=== PATIENT | male | born 1960 | race Caucasian/White ===

== ENCOUNTER → 2020-12-24 17:02 | Outpatient (CLI) | payer OTHER, SELFPAY ==
--- NOTE | ~2020-12-24 | MR_ITS ---
EXAMINATION: MR shoulder RT wo con DATE: 12/24/2020 18:04 INDICATION: Right shoulder pain. TECHNIQUE: Magnetic resonance imaging (MRI) of the right shoulder was performed without intravenous c ontrast. Sequences included axial PD-weighted FS FSE, coronal oblique PD-weighted FS FSE, coronal obl ique T2-weighted FS FSE, sagittal PD-weighted FS FSE, and sagittal T1-weighted SE. COMPARISON: None. FINDINGS: Coracoacromial arch: The acromion undersurface is curved in morphology (type II). The coracoacromial ligament is normal. M ild acromioclavicular osteoarthritis. Rotator cuff: Moderate supraspinatus tendinopathy and mild tendinopathy of the anterior infraspinatus without discr ete tear. Teres minor and subscapularis tendons are normal. Normal rotator cuff muscle bulk and signa l. Biceps tendon, glenoid labrum and glenohumeral cartilage: Long head of the biceps tendon is normal. Small marginal osteophytes along the anteroinferior glenoid extending to the base of the labrum. No labral tear. Glenohumeral cartilage is normal. Fluid: Physiologic amount of fluid in the glenohumeral joint and biceps tendon sheath. No loose osteochondra l bodies. Mild increased fluid signal in the subacromial/subdeltoid bursa consistent with minimal bur sitis. Bones: Normal marrow signal with no edema, fracture or abnormal marrow replacing process. Minimal cystic brianna nge at the superior facet of the greater tuberosity. IMPRESSION: 1. Moderate supraspinatus and mild infraspinatus tendinopathy without discrete tear. 2. Mild acromioclavicular osteoarthritis and minimal underlying subacromial/subdeltoid bursitis. Reviewed, dictated and finalized at location A. IMPRESSION: 1. Moderate supraspinatus and mild infraspinatus tendinopathy without discrete tear. 2. Mild acromioclavicular osteoarthritis and minimal underlying subacromial/sub deltoid bursitis.
== END ==
PROVIDERS: Visit Provider Physician Assistant Medical
DX: M25.511 Pain in right shoulder (principal); G89.29 Other chronic pain; M75.81 Other shoulder lesions, right shoulder; M19.011 Primary osteoarthritis, right shoulder; M75.51 Bursitis of right shoulder
CPT/HCPCS: 73221

== ENCOUNTER → 2021-09-28 10:45 | Outpatient (CLI) | payer OTHER, SELFPAY ==
--- NOTE | ~2021-09-28 | US_ITS ---
US breast LT limited INDICATION: Palpable left breast lump TECHNIQUE: Dedicated left Limited breast ultrasound COMPARISON: No prior studies for comparison. FINDINGS: The left breast is composed of normal heterogeneous echotexture without focal solid or cyst ic mass. IMPRESSION: 1: Normal left breast ultrasound. BI-RADS CATEGORY 1 - NEGATIVE Reviewed, dictated and finalized at location A. R OPERATOR
== END ==
PROVIDERS: Visit Provider Nurse Practitioner Family
DX: R22.2 Localized swelling, mass and lump, trunk (principal)
CPT/HCPCS: 76642

== ENCOUNTER → 2021-10-19 15:53 | Outpatient (CLI) | payer OTHER, SELFPAY ==
--- NOTE | ~2021-10-19 | MR_ITS ---
EXAMINATION: MR thoracic spine wo/w con DATE: 10/19/2021 17:05 INDICATION: Posterior left shoulder and upper and mid back pain and swelling. TECHNIQUE: Magnetic resonance imaging (MRI) of the thoracic spine was performed without and with 20 m L Multihance intravenous contrast. Sagittal localizer T1-weighted FSE of the cervicothoracic spine wa s obtained. Sequences included sagittal T2-weighted FSE, sagittal T2-weighted FS FSE, sagittal T1-shakeel ghted FSE and axial T1-weighted SE. Postcontrast sequences included axial T2-weighted FSE, sagittal T 1-weighted FS FSE, and axial T1-weighted FS SE. COMPARISON: None FINDINGS: Alignment is normal.Vertebral body heights are normal with a few small Schmorl's nodes at several end plates in the lower thoracic spine. Normal marrow signal.Multilevel mild disc height loss at T8-T9 th rough [id number] at L1-L2. Mild disc bulge at T9-T10 with only minimal central canal stenosis. Remain florence of the thoracic central canal is patent throughout. Multilevel mild thoracic facet osteoarthritis . No neural foraminal stenosis. There is normal spinal cord signal. The conus terminates at L1. The m arker indicating the region of concern is positioned over the posterior left second rib. Underlying c hest wall and paravertebral musculature is unremarkable. No abnormal enhancing masses or fluid collec tions identified. IMPRESSION: 1. Mild thoracic spondylosis. Reviewed, dictated and finalized at location A. MENT PHOTOGRAPHER
[2021-10-19 16:20] LABS: Estimated Glomerular Filt Rate > 60
== END ==
PROVIDERS: PCP Family Medicine; Visit Provider Nurse Practitioner Family
DX: R22.2 Localized swelling, mass and lump, trunk (principal); M47.894 Other spondylosis, thoracic region
CPT/HCPCS: 72157; A9577

== ENCOUNTER 2023-07-07 09:36 | Day surgery (SDC) | payer OTHER, SELFPAY ==
[2023-06-16 07:26] VITALS: BMI 33.7
--- NOTE | 2023-07-06 07:20 | WPDANESEPPF ---
Anes - Initial Pre Proc Eval Procedure: Operation Date: 07/07/23 11:00 Proposed Procedures p Screening Colonoscopy - Vazquez Mack MD Date/Time: 07/06/23 07:20 Surgeon: Vazquez Mack MD Pre Op Diagnosis: Z12.11 Screening neoplasm of colon Patient Data Age: 62 Gender: M Height: 1.8 m Weight: 111.6 kg Allergies Allergy/AdvReac Type Severity Reaction Status Date / Time No Known Allergies Allergy Verified 07/07/23 09:49 Home Medications Medication Instructions Recorded Confirmed Type azelastine 137 mcg (0.1 %) nasal 137 mcg (0.137 mL) intranasal Q12H 06/15/21 07/07/23 Rx spray aerosol #30 mL valacyclovir 1 gram tablet 2,000 mg PO Q12H #4 tabs 02/10/22 07/07/23 Rx (Valtrex) meloxicam 15 mg tablet 15 mg PO DAILY #30 tabs 04/13/22 07/07/23 Rx tizanidine 4 mg tablet 4 mg PO QHS PRN muscle spasticity 04/13/22 07/07/23 Rx #30 tabs cholecalciferol (vitamin D3) 125 125 mcg PO DAILY 06/02/23 07/07/23 History mcg (5,000 unit) capsule tapinarof 1 % topical cream (Vtama) 1 applic topical DAILY #60 grams 06/02/23 07/07/23 Rx tramadol 50 mg tablet 50 mg PO Q6H PRN pain #30 tabs 06/02/23 07/07/23 Rx Patient hx anesthesia problems: none Family hx anesthesia problems: none Results Review: All pre-operative results and documents have been reviewed as part of the pre-operative evaluation. [facility] Past Medical History Medical History (Updated 07/06/23 @ 16:09 by Rupert Cole NP) Abnormal MRI, lumbar spine BMI 34.0-34.9,adult Body mass index [BMI] 33.0-33.9, adult Constipation Elevated glucose Hyperlipidemia Mass on back Muscle cramping Psoriasis Rotator cuff tendonitis Screening for prostate cancer Shoulder pain, right Swelling, mass, or lump in chest Surgical History Surgical History H/O shoulder surgery Family History Family History Mother Family history of malignant neoplasm Family history of atrial fibrillation Grandparent Family history of malignant neoplasm Father Sibling No problems noted. Other Diabetes mellitus Social History Social History Smoking status: Never smoker Second hand tobacco smoke exposure: Yes Alcohol intake: current Drinks per week: 1 Substance use: never Substance use type: does not use Lack of Transportation: No Lack of Food: Never True Current Housing: I Have Housing Concerned About Future Housing: No Difficulty Paying Gas/Electric Bills: No Difficulty Paying for Meds: No Currently Unemployed: No Education: Trade/Vocational Certificate Difficulty w/ Childcare or Family Care: No Living arrangements: with family Additional living arrangements comments: Occupation/Education: occupation 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 Gender identity (if verbalized by the patient): Male Sexual Orientation (if Verbalized by the Patient): Straight or Heterosexual Spiritual care concerns: No Agree to blood products: Yes Anes - Eval Final PreProcedure Day of Procedure 07/06/23 07:20 Patient weight: obese Heart: regular rate and rhythm Lungs: clear to auscultation Airway: Mallampati scale class II Neurological: alert and oriented Last oral intake: >/= 8 hours ASA classification: II Emergent: no Anesthetic plan: proceed Anesthesia type and monitoring: general GIVS and standard monitoring Results Review: All pre-operative results and documents have been reviewed as part of the pre-operative evaluation. Informed Consent: The patient's anesthetic plan and its attendant risks and benefits were discussed with the patient/family/POA. Questions were solicited and answers provided to the satisfaction of the patient/family/POA.
--- NOTE | 2023-07-06 14:11 | PM.HPGS ---
History of Present Illness History of Present Illness Consent: Risks, benefits, and alternatives have been discussed and questions answered. Patient agrees to proceed with procedure. Chief complaint: Z12.11 Screening neoplasm of colon Narrative: Teo Metz is a 62 year old male referred for colon cancer screening. He had tubular adenoma removed about 14 years ago. Review of Systems Review of Systems: All systems reviewed & are unremarkable except as noted in HPI and below PMFSH Past Medical History Medical History Abnormal MRI, lumbar spine BMI 34.0-34.9,adult Body mass index [BMI] 33.0-33.9, adult Constipation Elevated glucose Hyperlipidemia Mass on back Muscle cramping Psoriasis Rotator cuff tendonitis Screening for prostate cancer Shoulder pain, right Swelling, mass, or lump in chest Surgical History Surgical History H/O shoulder surgery Family History Family History Mother Family history of malignant neoplasm Family history of atrial fibrillation Grandparent Family history of malignant neoplasm Father Sibling No problems noted. Other Diabetes mellitus Social History Social History Smoking status: Never smoker Second hand tobacco smoke exposure: Yes Alcohol intake: current Drinks per week: 1 Substance use: never Substance use type: does not use Lack of Transportation: No Lack of Food: Never True Current Housing: I Have Housing Concerned About Future Housing: No Difficulty Paying Gas/Electric Bills: No Difficulty Paying for Meds: No Currently Unemployed: No Education: Trade/Vocational Certificate Difficulty w/ Childcare or Family Care: No Living arrangements: with family Additional living arrangements comments: Occupation/Education: occupation 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 Gender identity (if verbalized by the patient): Male Sexual Orientation (if Verbalized by the Patient): Straight or Heterosexual Spiritual care concerns: No Agree to blood products: Yes Meds Home Medications and Allergies Home Medications Medication Instructions Recorded Confirmed Type azelastine 137 mcg (0.1 %) nasal 137 mcg (0.137 mL) intranasal Q12H 06/15/21 07/07/23 Rx spray aerosol #30 mL valacyclovir 1 gram tablet 2,000 mg PO Q12H #4 tabs 02/10/22 07/07/23 Rx (Valtrex) meloxicam 15 mg tablet 15 mg PO DAILY #30 tabs 04/13/22 07/07/23 Rx tizanidine 4 mg tablet 4 mg PO QHS PRN muscle spasticity 04/13/22 07/07/23 Rx #30 tabs cholecalciferol (vitamin D3) 125 125 mcg PO DAILY 06/02/23 07/07/23 History mcg (5,000 unit) capsule tapinarof 1 % topical cream (Vtama) 1 applic topical DAILY #60 grams 06/02/23 07/07/23 Rx tramadol 50 mg tablet 50 mg PO Q6H PRN pain #30 tabs 06/02/23 07/07/23 Rx Allergies Allergy/AdvReac Type Severity Reaction Status Date / Time No Known Allergies Allergy Verified 07/07/23 09:49 Exam Resp: Auscultation: clear to auscultation bilaterally Cardio: Rate: regular rate Rhythm: regular rhythm GI: GI Palp: Yes Soft to palpation and No Tenderness to palpation present (GI) Assessment and Plan Assessment and plan (1) Colon cancer screening: Code(s): Z12.11 - Encounter for screening for malignant neoplasm of colon Status: Acute Assessment and Plan: Colonoscopy with possible biopsy or polypectomy or cautery or injection of substances.
--- NOTE | 2023-07-07 09:59 | SUR.PREOP ---
NOTIFIED DR VELAZQUEZ THAT PT HAD A HALF OF A PEANUT BUTTER SANDWICH YESTERDAY AT 1400. PT STATES STOOL IS LIQUID CLEAR WITH A FEW TINY FLECKS
[2023-07-07 10:00] VITALS: BMI 33.7
[2023-07-07 10:02] VITALS: BP 126/91; PULSE 67; RESP 18; TEMP 36.4; O2SAT 100
[2023-07-07] MEDS: LACTATED RINGERS 1,000 ML 150 ML IV CONT (10:10)
[2023-07-07 10:33] VITALS: BP 110/69; PULSE 69; RESP 18; O2SAT 95
[2023-07-07 10:43] VITALS: BP 114/76; PULSE 64; RESP 20; O2SAT 98
[2023-07-07 10:53] VITALS: BP 113/81; PULSE 68; RESP 20; O2SAT 97
--- NOTE | 2023-07-07 11:50 | WPDANESPN ---
Anes - Prog Note Post-Op Date/Time: 07/07/23 11:50 Cardiovascular status: normal Respiratory status: normal Airway patency: baseline Mental status: baseline Post-Op hydration status: normal Vital Signs: Last Vital Signs Temp 36.4 C 07/07/23 10:02 Pulse 68 07/07/23 10:53 Resp 20 07/07/23 10:53 BP 113/81 07/07/23 10:53 Pulse Ox 97 07/07/23 10:53 O2 Del Method Room Air 07/07/23 10:53 Pain Score (VAS): 0 I/O: Intake & Output 07/06/23 07/07/23 07/07/23 23:59 07:59 15:59 Intake Total 400 Balance 400 Post-procedural complaints: none Patient Feedback: Patient satisfied with anesthetic care. Other Findings: Patient vital signs back to baseline. Patient denies nausea and vomiting. Patient's pain under control. Patient OK for discharge.
== END 2023-07-07 11:05 | disposition home or self-care (01) ==
PROVIDERS: PCP Family Medicine; Visit Provider Internal Medicine Gastroenterology
PROC: 0DJD8ZZ Inspection of Lower Intestinal Tract, Via Natural or Artificial Opening Endoscopic (ICD-10-PCS; CPT 45378; principal; 2023-07-07 11:00)
DX: Z86.010 Personal history of colon polyps (principal)
CPT/HCPCS: 45378

== ENCOUNTER 2025-08-13 08:03 | Outpatient (CLI) | payer OTHER, SELFPAY ==
--- NOTE | ~2025-08-13 | CT_ITS ---
EXAMINATION: CT sinus wo con COMPARISON: None HISTORY: Chronic sinusitis, unspecified TECHNIQUE: Axial images were obtained without IV contrast. Sagittal, coronal reconstruction images were obtained from the axial views. CT scan performed using dose optimization techniques including the following automated exposure control; adjustment of mA and/or kV; use of iterative reconstruction technique. Automatic exposure control was used to reduce radiation dose. Permanent radiation dose record is archived to PACS. FINDINGS: Visualized brain parenchyma, optic globes and soft tissues appear unremarkable. Frontal sinuses unremarkable. Right ethmoidal sinus is diminutive with minimal mucosal thickening. Maxillary sinus is unremarkable. Cavernous sinus is unremarkable. Ostiomeatal complexes patent. Nasal septum is midline. No significant thickening of the turbinates on either the nasal cavities. No osseou s destruction or wall thickening identified. IMPRESSION: Minimal sinusitis. Reviewed, dictated and finalized at location P. ESTATE ADMINISTRATOR IMPRESSION: Minimal sinusitis.
== END 2025-08-13 08:04 | disposition home or self-care (01) ==
LOC: MICIMG 08:04
PROVIDERS: PCP Otolaryngology; Visit Provider Nurse Practitioner Adult Health
DX: J32.9 Chronic sinusitis, unspecified (principal)
CPT/HCPCS: 70486